=== PATIENT | female | born 1995 | race Caucasian/White ===

== ENCOUNTER 2017-08-16 18:08 | Emergency (ER) | payer SELFPAY ==
[~2017-08-16] VITALS: Ht 160 cm; Wt 55.0 kg
[~2017-08-16 18:08] MED LIST: CEPH-460 PO
[2017-08-16 18:09] VITALS: BP 119/63; PULSE 94; RESP 18; TEMP 98.1; O2SAT 96
[2017-08-16 19:00] VITALS: BP 123/65; PULSE 94; RESP 20; TEMP 100.2; O2SAT 98
[2017-08-16] MEDS ORDERED: CEPHALEXIN MONOHYDRATE 500 MG CAP PO ONE (20:15)
--- NOTE | 2017-08-16 20:20 | PD ---
HPI Chief Complaint: Psychiatric Symptoms Time Seen by Provider: 19:53 Travel History International Travel<30 days: No Contact w/Intl Traveler<30days: No Traveled to known affect area: No History of Present Illness HPI 22-year-old female that presents to the ED for evaluation of psychiatric eval. Patient came here voluntarily for this. Apparently she was seen at our [place] facility and was evaluated and had blood work that was essentially unremarkable other than for possible UTI, chlamydia and positive for multiple substances. She was told to come here for further psychiatric evaluation. Currently she complains of nothing and she is sleeping. She states that she has not taken the antibiotic given to her. She denies any symptoms to me. She does tell me that she has been using Xanax. Apparently used it yesterday. She denies any other symptoms. States feeling suicidal. No homicidal ideation. PFSH Past Medical History Anemia: Yes Diminished Hearing: No Tetanus Vaccination: < 5 Years ?: Unknown Social History Alcohol Use: Yes (OCCASSIONALLY) Tobacco Use: Yes Substance Use: Yes (XANAX, THC) Allergies-Medications (Allergen,Severity, Reaction): Coded Allergies: iodine (Verified Allergy, Unknown, 08/16/17) shellfish derived (Verified Allergy, Unknown, 08/16/17) Reported Meds & Prescriptions Reported Meds & Active Scripts Active No Active Prescriptions or Reported Medications Review of Systems Except as stated in HPI: all other systems reviewed are Neg Physical Exam Narrative GENERAL: SKIN: Warm and dry. HEAD: Atraumatic. Normocephalic. EYES: Pupils equal and round. No scleral icterus. No injection or drainage. ENT: No nasal bleeding or discharge. Mucous membranes pink and moist. NECK: Trachea midline. No JVD. CARDIOVASCULAR: Regular rate and rhythm. RESPIRATORY: No accessory muscle use. Clear to auscultation. Breath sounds equal bilaterally. GASTROINTESTINAL: Abdomen soft, non-tender, nondistended. Hepatic and splenic margins not palpable. MUSCULOSKELETAL: Extremities without clubbing, cyanosis, or edema. No obvious deformities. Full range of motion of the upper and lower extremities bilaterally. 2+ pulses bilaterally. NEUROLOGICAL: Awake and alert. No obvious cranial nerve deficits. Motor grossly within normal limits. Five out of 5 muscle strength in the arms and legs. Normal speech. PSYCHIATRIC: Appropriate mood and affect; insight and judgment normal. Data Data Last Documented VS Vital Signs Date Time Temp Pulse Resp B/P (MAP) Pulse Ox O2 Delivery O2 Flow Rate FiO2 08/16/17 19:00 100.2 94 20 123/65 (84) 98 Room Air Orders Orders Ed Urine Pregnancytest Poc (08/16/17 19:02) Psych Screen (08/16/17 19:39) Cephalexin (Keflex) (08/16/17 20:15) MDM Medical Decision Making Medical Screen Exam Complete: Yes Emergency Medical Condition: Yes Medical Record Reviewed: Yes Differential Diagnosis Depression versus suicidal ideation versus anxiety versus adjustment disorder versus mood disorder versus bipolar disorder versus schizophrenia versus paranoid disorder versus psychosis versus substance abuse versus alcohol abuse versus alcohol induced psychosis versus homicidality addition versus cutting versus personality disorder Narrative Course 22-year-old female that presents to the ED for evaluation of voluntary psych evaluation. Patient was properly examined and was found to have signs and symptoms consistent appears to be psychiatric in nature. Did review her medical records. She was seen at the [facility] and given medications for discharge as well as for UTI. She came positive for chlamydia and was treated for that with ceftriaxone and azithromycin. She was given Keflex which she has not started. She will be given Keflex here. She apparently was seen yesterday and decided to come in [facility] for evaluation of this. Patient was medically clear. Okay to be seen by psych. Patient was given Keflex dose here. Mental health screening was discussed with the patient. Diagnosis Primary Impression: Polysubstance abuse Scripts No Active Prescriptions or Reported Meds John Buchanan Aug 16, 2017 20:20
[2017-08-17 03:03] VITALS: BP 101/55; PULSE 66; RESP 16; TEMP 97; O2SAT 99
[2017-08-17 06:45] VITALS: BP 111/68; PULSE 71; RESP 18; TEMP 97.3; O2SAT 97
--- NOTE | 2017-08-17 09:09 | PD ---
History of Present Illness Chief Complaint: Psychiatric Symptoms Time Seen by Provider: 08:50 Travel History International Travel<30 Days: No Contact w/Intl Traveler<30days: No Known affected area: No Legal Status Legal Status: Voluntary History of Present Illness: Patient is a 22-year-old female with a child who was seen in the [place] emergency room and [place]. She was diagnosed with a urinary tract infection. During her stay there she was very emotional and the ER told her to come to the [place] ED in [facility] for psychological evaluation. Her grandmother transported her here to the emergency room and [facility]. Patient endorses no suicidal ideations. She states "I have a beautiful baby and I want to get home to my child." She states that she has had a lot of stressors in her life recently but there are nothing that she can handle. She states, " stress is part of being a mom and juggling multiple things in your life." She has no past psychiatric history. She is positive for amphetamines cocaine and benzodiazepines. She does acknowledge that she does take Xanax on a regular basis. Chart reviewed and discussed with nurse. She is in room [address] [address] in [facility]. Alert and oriented 4. No abnormal thought content. No perceptual distortions. Recent and remote memory good. Fund of knowledge average. Attention and concentration adequate. Insight and judgment good. Steady gait. Speech of normal tone and volume. Patient is at low risk for self-harm or harming others. Currently her grandmother has her child. She is preoccupied with getting home so she could take care of her baby. Patient does not feel that she not needs mental health services. Information provided on [facility] if her situation changes. Dx: Adjustment disorder PFSH Past Medical History Anemia: Yes Diminished Hearing: No Tetanus Vaccination: < 5 Years ?: Unknown Psychiatric History Psychiatric History No past psychiatric history. Social History Hx Alcohol Use: Yes (OCCASSIONALLY) Hx Tobacco Use: Yes Hx Substance Use: Yes (benzos, cocaine, marijuana) Hx of Substance Use Treatment: No Allergies-Medications (Allergen,Severity, Reaction): Coded Allergies: iodine (Verified Allergy, Unknown, 08/16/17) shellfish derived (Verified Allergy, Unknown, 08/16/17) Reported Meds & Prescriptions Reported Meds & Active Scripts Active No Active Prescriptions or Reported Medications Mental Status Examination Appearance: Appropriate Consciousness: Alert Orientation: x4 Motor Activity: Normal gait Speech: Unremarkable Language: Adequate Fund of Knowledge: Adequate Attention and Concentration: Adequate Memory: Unremarkable Mood: Appropriate Affect: Appropriate Thought Process & Associations: Intact Thought Content: Appropriate Hallucination Type: None Delusion Type: None Suicidal Ideation: No Suicidal Plan: No Suicidal Intention: No Homicidal Ideation: No Homicidal Plan: No Homicidal Intention: No Insight: Adequate Judgment: Adequate MDM Medical Decision Making Medical Record Reviewed: Yes Assessment/Plan Patient is a 22 year old female who was treated in [facility] ED. She was referred here for a psychological evaluation. Patient has no history mental health . She endorses no suicidal ideations. Positive UDS. She states, " I have a child to live for, I just want to go home to my baby." Currently her grandmother has her baby and is willing to pick the patient up. Patient is at low risk for self harm or harming other. She is aware of her substance use. Will provide her with information on the MAT program through [facility] if she is interested. Orders Orders Ed Urine Pregnancytest Poc (08/16/17 19:02) Psych Screen (08/16/17 19:39) Cephalexin (Keflex) (08/16/17 20:15) Hydroxyzine Pamoate (Vistaril) (08/17/17 01:45) Diet Regular Basic (08/17/17 Breakfast) Results Vital Signs Date Time Temp Pulse Resp B/P (MAP) Pulse Ox O2 Delivery O2 Flow Rate FiO2 08/17/17 06:45 97.3 71 18 111/68 (82) 97 Room Air 08/17/17 03:03 97.0 66 16 101/55 (70) 99 Room Air 08/16/17 19:00 100.2 94 20 123/65 (84) 98 Room Air 08/16/17 18:09 98.1 94 18 119/63 (81) 96 Diagnosis Primary Impression: Adjustment disorder Additional Impression: Polysubstance abuse Prescriptions No Active Prescriptions or Reported Meds Disposition: 01 DISCHARGE HOME Condition: Stable Problem Qualifiers Leydi,Laura PANTS CUTTER Aug 17, 2017 09:09
--- NOTE | 2017-08-17 09:29 | PD ---
Physical Exam Time Seen by Provider: 09:27 Narrative CAMDEN Chirinos has evaluated the patient, lifted the Ramyond act and cleared the patient for discharge. Data Data Last Documented VS Vital Signs Date Time Temp Pulse Resp B/P (MAP) Pulse Ox O2 Delivery O2 Flow Rate FiO2 08/17/17 06:45 97.3 71 18 111/68 (82) 97 Room Air Orders Orders Ed Urine Pregnancytest Poc (08/16/17 19:02) Psych Screen (08/16/17 19:39) Cephalexin (Keflex) (08/16/17 20:15) Hydroxyzine Pamoate (Vistaril) (08/17/17 01:45) Diet Regular Basic (08/17/17 Breakfast) MDM Supervised Visit with YUMIKO: No Narrative Course CAMDEN Chirinos has evaluated the patient, lifted the Raymond act and cleared the patient for discharge. Patient is being referred to the [facility] program for follow-up. Patient contracts safety. Denies suicidal or homicidal ideations. Patient will be provided community resource packet to /[facility] for follow-up. Has friends and family for support. Patient was medically cleared by alternate provider prior to psych screening. Patient has been evaluated by psychiatry and and is now cleared for discharge. Diagnosis Primary Impression: Adjustment disorder Additional Impression: Polysubstance abuse Referrals: JUSTIN (Out patient) [facility] Primary Care Physician Psychiatrist Jazmyne ANDERSON Behavioral Patient Instructions: General Instructions, Mood Disorders (ED) Additional Instruction: Contract safety to your self and others Follow-up with psychiatry Follow-up with primary care provider Follow-up with [facility] Return to the emergency department immediately with worsening of symptoms Med/Other Pt SpecificInfo: No Change to Meds, No Meds Exist/No RX given Scripts No Active Prescriptions or Reported Meds Disposition: DISCHARGE HOME Condition: Stable Radha Chairez Aug 17, 2017 09:28
== END 2017-08-17 10:08 | disposition home or self-care (01) ==
LOC: NEPJ 18:08
DX: F43.20 Adjustment disorder, unspecified (principal); F19.10 Other psychoactive substance abuse, uncomplicated; Z72.0 Tobacco use
CPT/HCPCS: 84703; 99283